=== PATIENT | male | born 1975 | race African-American/Black ===

== ENCOUNTER → 2016-09-09 | Outpatient (CLI) | payer OTHER ==
[2016-09-09 10:12] LABS: BASOPHIL % 0.7 % (0-2); PLATELET COUNT 192 x10^3mcL (130-400); RED CELL DISTRIBUTION WIDTH 13.6 % (11.5-14.5)
[2016-09-09 10:26] LABS: ALBUMIN 4.3 g/dL (3.4-5.0); ALKALINE PHOSPHATASE 88 U/L (46-116); ALT/SGPT 15 U/L (16-63); AST/SGOT 9 U/L (15-37); BILIRUBIN TOTAL 0.9 mg/dL (0.20-1.00); CARBON DIOXIDE 31.3 mmol/L (21-32); CHLORIDE SERUM 104 mmol/L (98-107); CHOLESTEROL 167 mg/dL (<200); GFR1 > 60 mL/min; GLUCOSE SERUM 92 mg/dL (74-106); POTASSIUM SERUM 4.1 mmol/L (3.5-5.1); SODIUM SERUM 143 mmol/L (136-145); TOTAL PROTEIN, SERUM 7.4 g/dL (6.4-8.2); TRIGLYCERIDES 31 mg/dL (<150)
[2016-09-09 10:31] LABS: T3 TOTAL 0.85 ng/mL
[2016-09-09 10:34] LABS: CHOLESTEROL/HDL RATIO 2.1; HDL CHOLESTEROL 78 mg/dL (40-60)
[2016-09-09 10:36] LABS: FREE T4 0.87 ng/dL (0.76-1.46); T4(THYROXINE) 8.1 ug/dL (4.7-13.3)
== END | disposition home or self-care (01) ==
LOC: LB 09:04
PROVIDERS: Family Medicine
DX: Z13.1 Encounter for screening for diabetes mellitus (principal); Z13.29 Encounter for screening for other suspected endocrine disorder; Z13.0 Encounter for screening for diseases of the blood and blood-forming organs and certain disorders involving the immune mechanism; Z12.5 Encounter for screening for malignant neoplasm of prostate
CPT/HCPCS: 84153; 84439